=== PATIENT | female | born 1995 | race Caucasian/White ===

== ENCOUNTER 2019-12-30 03:36 | Emergency (ER) | payer OTHER ==
[2019-12-30] MEDS ORDERED: ACETAMINOPHEN 1000 MG/100 ML VIAL (NON FORMULARY) IVPB ONE (04:07)
[2019-12-30] MEDS ORDERED: FAMOTIDINE 20 MG/50 ML IVPB 20 MG/50 ML MG IVPB ONE (04:07)
[2019-12-30] MEDS ORDERED: SODIUM CHLORIDE 1,000 ML IV STA (04:07)
[2019-12-30] MEDS ORDERED: ONDANSETRON 4 MG/2 ML VIAL IVPUSH ONE (04:08)
[2019-12-30 04:25] VITALS: BMI 33.6
--- NOTE | 2019-12-30 04:29 | PDOC ---
History of Present Illness - General Chief Complaint: Nausea/Vomiting Stated Complaint: VOMITING,LOW BLOOD PRESSURE,NAUSEA Time Seen by Provider: 12/30/19 04:02 History Source: Patient Exam Limitations: No Limitations - History of Present Illness Initial Comments: Sahra Vazquez is a 24 yo F 38 weeks who presents to the [facility] er with 1 day of a fever, nausea, vomiting, and diarrhea. She presents because she feels dehydrated and states she has not been able to eat or drink yesterday or today. She denies any associated abdominal pain and denies abnormal vaginal discharge. She has been taking pre- vitamins per usual all long but admits to frequently forgetting to take her meds because she doesn't like taking them. PCP: None PSH: None reported Allergies: NKA, NKDA Social Hx: Denies smoking, drinking, or other substance usage Past History - Past Medical History Allergies/Adverse Reactions: Allergies Allergy/AdvReac Type Severity Reaction Status Date / Time No Known Allergies Allergy Verified 12/30/19 04:25 Home Medications: Ambulatory Orders NK [No Known Home Medication] 12/30/19 - Psycho Social/Smoking Cessation Hx Smoking History: Never smoked Have you smoked in the past 12 months: No Information on smoking cessation initiated: No Hx Alcohol Use: No Drug/Substance Use Hx: No Review of Systems - Review of Systems Able to Perform ROS?: Yes Comments:: CONSTITUTIONAL: Absent: fever, no chills, no fatigue EYES: Absent: visual changes ENT: Absent: ear pain, no sore throat CARDIOVASCULAR: Absent: chest pain, no palpitations RESPIRATORY: Absent: cough, no SOB GI: Present: Nausea, vomiting, diarrhea Absent: abdominal pain, no constipation GENITOURINARY: Absent: dysuria, no frequency, no hematuria MUSKULOSKELETAL: Absent: back pain, no arthralgia, no myalgia SKIN: Absent: rash NEURO: Absent: headache *Physical Exam - Vital Signs Last Vital Signs Temp Pulse Resp BP Pulse Ox 98.1 F 79 20 88/56 L 100 12/30/19 04:23 12/30/19 04:23 12/30/19 04:23 12/30/19 04:23 12/30/19 04:23 - Physical Exam GENERAL: Well-appearing, well-nourished. Mild distress. HEENT: Normocephalic, atraumatic. PERRL, EOM intact. CARDIOVASCULAR: Tachycardic rate. Normal S1, S2. Regular rhythm. PULMONARY: No evidence of respiratory distress. Lungs clear to auscultation bilaterally. No wheezing, rales or rhonchi. ABDOMEN: Gravid uterus. Soft, non-distended, non-tender. EXTREMITIES: Normal ROM in all four extremities. No gross deformities. SKIN: Warm, dry. No rash NEUROLOGICAL: No focal neurological deficits. ED Treatment Course - LABORATORY CBC & Chemistry Diagram: 12/30/19 04:35 12/30/19 04:35 Medical Decision Making - Medical Decision Making Sahra Vazquez is a 24 yo F 38 weeks who presents to the [facility] er with 1 day of a fever, nausea, vomiting, and diarrhea. She presents because she feels dehydrated and states she has not been able to eat or drink yesterday or today. She denies any associated abdominal pain and denies abnormal vaginal discharge. She has been taking pre-[place] vitamins per usual all long but admits to frequently forgetting to take her meds because she doesn't like taking them. BP at bedside 95/71 Vital Signs Temp Pulse Resp BP Pulse Ox 98.1 F 79 20 88/56 L 100 12/30/19 04:23 12/30/19 04:23 12/30/19 04:23 12/30/19 04:23 12/30/19 04:23 DDx IBNLT: Gastroenteritis, GERD, electrolyte/metabolic disturbance, anemia Plan: Labs, Urine, IV hydration, flu swab, analgesia, supportive care, PO trial , L&D eval Labs: Mild leukocytosis Urine: 3+ ketonuria PO trial: Patient ate 8 crackers and did not experience any nausea or vomiting Re-assessment: Patient is hungry and requesting food at bedside - giving her a sandwich to eat Disposition: Up to L&D to evaluate fetus Discharge - Discharge Information Problems reviewed: Yes Clinical Impression/Diagnosis: Nausea & vomiting Qualifiers: Vomiting type: unspecified Vomiting Intractability: non-intractable Qualified Code(s): R11.2 - Nausea with vomiting, unspecified Condition: Improved Disposition: HOME - Admission No - Follow up/Referral Referrals: [facility] [place] [facility] [Provider Group] Clare Moss MD [Staff Physician] - - Patient Discharge Instructions Patient Printed Discharge Instructions: DI for Nausea -- Adult, DI for Vomiting -- Adult, DI for Poor Appetite Additional Instructions: You came into the ER with nausea and vomiting. We believe you got food poisoning. It is extremely important for you to eat and drink. Come back to the ER immediately if you cannot eat or drink because this will be very bad for the baby if you are dehydrated. Please schedule a follow up with your OB doctor in the next 24 t0 48 hours. Print Language: SYRIAC - Post Discharge Activity
[2019-12-30] MEDS ORDERED: ONDANSETRON 4 MG/2 ML VIAL ONE (04:36)
[2019-12-30] MEDS ORDERED: ACETAMINOPHEN INJECTION 100 ML IVPB ONE (04:36)
[2019-12-30 04:43] LABS: BASO % 0.3 % (0-2.0); EOS % 0.1 % (0-4.5); HEMATOCRIT 36.6 % (32.4-45.2); LYMPH % 12.1 % (8-40); MCH 26.5 pg (25.7-33.7); MCHC 32.8 g/dl (32.0-36.0); MEAN CELL VOLUME 80.9 fl (80-96); MEAN PLT VOLUME 8.1 fl (7.5-11.1); MONO % 6.8 % (3.8-10.2); NEUT % 80.7 % (42.8-82.8); PLATELET COUNT 285 K/MM3 (134-434); RBC 4.53 M/mm3 (3.60-5.2); RDW 16.6 % (11.6-15.6); WHITE BLOOD COUNT 11.9 K/mm3 (4.0-10.0)
--- NOTE | 2019-12-30 04:56 | PDOC ---
Attending Attestation - Resident Resident Name: Jake Jackson - ED Attending Attestation I have performed the following: I have examined & evaluated the patient, The case was reviewed & discussed with the resident, I agree w/resident's findings & plan, Exceptions are as noted - HPI HPI: 01/12/20 19:38 See resident HPI - Physicial Exam PE: 01/12/20 19:38 Agree with documented exam - Medical Decision Making 01/12/20 19:38 24F patient with symptoms consistent with gastroenteritis, less likely acute abdomen, eval for electrolyte/metabolic derangement f/u labs, ua, flu symptomatic tx, IVF dispo per clinical course, will ultimately need eval in L&D
[2019-12-30 05:08] LABS: PHOSPHOROUS 4.3 mg/dL (2.5-4.9)
[2019-12-30 05:09] LABS: URINE APPEARANCE CLEAR; URINE BILIRUBIN NEGATIVE (NEGATIVE); URINE COLOR YELLOW; URINE GLUCOSE (UA) NEGATIVE (NEGATIVE); URINE KETONE 3+ (NEGATIVE); URINE LEUK ESTERASE NEGATIVE (NEGATIVE); URINE NITRITE NEGATIVE (NEGATIVE); URINE PROTEIN TRACE (NEGATIVE); URINE UROBILINOGEN 0.2 mg/dL (0.2-1.0)
[2019-12-30 05:11] LABS: ALBUMIN 2.3 g/dl (3.4-5.0); BILIRUBIN,TOTAL 0.4 mg/dL (0.2-1); BLOOD UREA NITROGEN 8.7 mg/dL (7-18); CALCIUM 8.3 mg/dL (8.5-10.1); CREATININE 0.4 mg/dL (0.55-1.3); POTASSIUM 3.5 mmol/L (3.5-5.1); TOT PROT 6.2 g/dl (6.4-8.2)
[2019-12-30] MEDS ORDERED: SODIUM CHLORIDE 0.9% 500 ML INFUS.BAG IV ONE (05:13)
[2019-12-30 10:14] VITALS: BP 99/58; PULSE 79; TEMP 98.8
== END 2019-12-30 10:40 | disposition home or self-care (01) ==
LOC: JER 03:36
DX: R11.2 Nausea with vomiting, unspecified (principal); O26.893 Other specified pregnancy related conditions, third trimester; Z3A.38 38 weeks gestation of pregnancy
CPT/HCPCS: 36415; 80053; 81003; 83690; 83735; 84100; 85025; 87086; 87804; 99283-25; J0131; J7030

== ENCOUNTER 2021-06-20 16:47 | Emergency (ER) | payer OTHER ==
[2021-06-20 17:11] VITALS: BMI 31.1
[2021-06-20 18:42] VITALS: BP 124/68; PULSE 68
== END 2021-06-20 18:42 | disposition home or self-care (01) ==
LOC: JER 16:47
DX: L73.2 Hidradenitis suppurativa (principal)
CPT/HCPCS: 99283-25

== ENCOUNTER 2023-12-17 20:08 | Emergency (ER) | payer OTHER ==
[2023-12-17 20:27] VITALS: BP 105/55; PULSE 94; RESP 20; TEMP 98.6; BMI 28.3
[2023-12-17] MEDS ORDERED: ACETAMINOPHEN 500 MG TABLET (FP) PO ONE (21:37)
[2023-12-17] MEDS ORDERED: LIDOCAINE 4% PATCH TP ONE ×5 (21:38→23:38)
[2023-12-17] MEDS ORDERED: ACETAMINOPHEN 500 MG TABLET (FP) ONE (21:56)
[2023-12-17] MEDS ORDERED: LIDOCAINE PATCH REMOVAL MC ONE (22:00)
[2023-12-17] MEDS ORDERED: LIDOCAINE PATCH REMOVAL MC SCH (22:00)
[2023-12-17] MEDS ORDERED: IBUPROFEN 600 MG TABLET (FP) PO ONE ×2 (22:13→23:05)
== END 2023-12-17 23:47 | disposition home or self-care (01) ==
LOC: JERFT 20:08
DX: M79.605 Pain in left leg (principal); M54.50 Low back pain, unspecified
CPT/HCPCS: 72131-TC; 73562-TC-LT-FY; 73610-TC-LT-FY; 73630-TC-LT; 84703; 99284-25